=== PATIENT | female | born 1975 | race Caucasian/White ===

== ENCOUNTER 2020-04-06 08:54 | Emergency (ER) | payer MEDICAID, OTHER ==
[~2020-04-06] VITALS: Ht 157.4 cm; Wt 95.2 kg
[2020-04-06 09:00] VITALS: BP 125/82
[2020-04-06] MEDS ORDERED: Armour Thyroid (09:17)
[2020-04-06] MEDS ORDERED: Lasix (09:17)
[2020-04-06] MEDS ORDERED: Alprazolam (09:17)
[2020-04-06] MEDS ORDERED: Effexor (09:17)
[2020-04-06] MEDS ORDERED: IBUP-1780 PO (09:24)
[2020-04-06] MEDS ORDERED: CYCL10TA9 PO (09:24)
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
== END 2020-04-06 09:31 | disposition home or self-care (01) ==
LOC: EDUNIT# 08:54 → ER FS 08:55
DX: S29.012A Strain of muscle and tendon of back wall of thorax, initial encounter (principal); Z88.2 Allergy status to sulfonamides; V49.40XA Driver injured in collision with unspecified motor vehicles in traffic accident, initial encounter
CPT/HCPCS: 99282

== ENCOUNTER 2022-12-26 05:43 | Outpatient (CLI) | payer BC ==
[~2022-12-26] VITALS: Ht 157.5 cm; Wt 94.0 kg
[~2022-12-26 05:43] MED LIST: Alprazolam; Armour Thyroid; CYCL10TA25 PO; Effexor; IBUP-1780 PO; Lasix
[2022-12-28] MEDS ORDERED: LEVO88TA2 PO (09:50)
[2022-12-28] MEDS ORDERED: ONDA4TAB11 SL (09:50)
[2022-12-28] MEDS ORDERED: PANT40TA52 PO (09:50)
[2022-12-28] MEDS ORDERED: LINA145C PO (09:50)
[2022-12-28] MEDS ORDERED: TRAZ150T72 PO (09:50)
== END 2022-12-28 09:54 | disposition home or self-care (01) ==
LOC: PREOP 05:43
PROVIDERS: ATTEND Surgery
DX: Z01.818 Encounter for other preprocedural examination (principal)

== ENCOUNTER 2023-01-07 07:34 | Day surgery (SDC) | payer BC ==
[~2023-01-07] VITALS: Ht 157.5 cm; Wt 94.0 kg
[~2023-01-07 07:34] MED LIST changes: +LEVO88TA2 PO; +LINA145C PO; +ONDA4TAB11 SL; +PANT40TA52 PO; +TRAZ150T72 PO
[2023-01-07] MEDS ORDERED: LACTATED RINGERS 1,000 ML IV STA (07:54)
[2023-01-07 08:00] VITALS: BP 112/82
[2023-01-07] MEDS ORDERED: HURRICAINE EXT TUBE (BENZOCAINE) XX PRN (08:00)
--- NOTE | 2023-01-07 08:11 | Progress Note-Pre Operative ---
Pre-Operative Progress Note Date of Available H&P: Dec 20, 2022 Date H&P Reviewed: Jan 07, 2023 Time H&P Reviewed: 08:06 History & Physical: H&P Reviewed, Patient Examed, No changes noted Pre-Operative Diagnosis: GERD, Screening DWAYNE RODRÍGUEZ DO Jan 07, 2023 08:11
[2023-01-07] MEDS ORDERED: PROPOFOL INJECTION 50 ML IV ONE ×2 (08:17→08:49)
[2023-01-07] MEDS ORDERED: MIDAZOLAM 2 MG/2 ML (VERSED) VIAL ONE (08:17)
--- NOTE | 2023-01-07 09:08 | Progress Note-Post Operative ---
Post-Operative Progess Note Surgeon (s)/Production Engineer (s) Surgeon DWAYNE RODRÍGUEZ DO Production Engineer: none Pre-Operative Diagnosis GERD, Screening Post-Operative Diagnosis Gastritis Hiatal Hernia Esophagitis Colon polyp int hemorrhoids Procedure & Operative Findings Date of Procedure 01/07/23 Procedure Performed/Findings EGD with biopsy Colonoscopy with snare polypectomy PROCEDURE NOTE: After informed consent was obtained, the patient was brought to the endoscopy suite, placed in bed in left lateral decubitus position. She was administered IV sedation by the STRIP MACHINE TENDER who then monitored vitals the entire time, heart rate, blood pressure and pulse ox and the scope was inserted down the mouth through the esophagus into the stomach. On the way down, noted some mild esophagitis, took a picture, pushed into the stomach, pushed past the antrum into the duodenum. Duodenum looked good. Pulled back and did a biopsy of the antrum, then retroflexed the scope, saw small grade I AFS hiatal hernia, took a picture of this and then pulled the scope into the GE junction and then did a biopsy of the GE junction. Pushed the scope back into the stomach, suctioned all the air out of the stomach. At this point pulled the scope up the esophagus and out the mouth. Switched camera, switched gloves, went down below and started the colonoscopy. Pushed all the way to about 140 cm and pushed into the cecum, took a picture of appendiceal orifice and noted the ileocecal valve. Then slowly withdrew the scope insufflating to look circumferentially at the fofana starting in the cecum and up the ascending colon. Found a polyp here and elected to remove it with hot snare. Continued up to the hepatic flexure, then down the transverse colon, splenic flexure, into the descending colon down in the sigmoid and then into the rectal vault and retroflexed the scope. Took a picture of the internal hemorrhoids. The patient tolerated the procedure and she recovered in the endoscopy suite. Recommended for repeat colonoscopy in 5 years Anesthesia Type IV sedation by STRIP MACHINE TENDER Estimated Blood Loss Estimated blood loss (mL): scant Specimens/Packing Specimens Removed antral bx body of stomach bx GE jxn Asc colon polyp DWAYNE RODRÍGUEZ DO Jan 07, 2023 09:08
--- NOTE | 2023-01-07 09:09 | Endoscopy Discharge Instruct ---
Endo Procedure/Findings Findings 1.: Gastritis 2.: Hiatal Hernia 3.: Polyp 4.: Internal Hemorrhoids Discharge Instructions - Activity: You might feel a little sleepy until tomorrow. This is due to the medicine you received to relax you. Until tomorrow, you should: NOT drive a car, operate machinery or power tools. NOT drink any alcoholic beverages. NOT make any important decisions or sign importortant papers. Do not return to work until tomorrow, unless otherwise instructed. Resume previous activities tomorrow. Diet: Start by taking liquids. If you tolerate liquids, advance to solid food. 1.: EGD in 3 years 2.: Colonscopy in 5 years Notify Physician - If you experience excessive bleeding, unusual abdominal pain, fever, or chest pain, contact your doctor immediately. Follow-Up: Other Follow up in my office in one week DWAYNE RODRÍGUEZ DO Jan 07, 2023 09:09
[2023-01-07 09:10] VITALS: BP 116/75
[2023-01-07 09:12] VITALS: BP 119/80
--- NOTE | 2023-01-07 09:25 | Anesthesia-General Post-Op ---
MAC Patient Condition Mental Status/LOC: Same as Preop Cardiovascular: Satisfactory Nausea/Vomiting: Absent Respiratory: Satisfactory Pain: Controlled Complications: Absent Post Op Complications Complications None Follow Up Care/Instructions Patient Instructions None needed. Anesthesiology Discharge Order Discharge Order Patient is doing well, no complaints, stable vital signs, no apparent adverse anesthesia problems. No complications reported per nursing. DHEERAJ CERDA CRNA Jan 07, 2023 09:25
[2023-01-07 09:40] VITALS: BP 119/80
== END 2023-01-07 09:49 | disposition home or self-care (01) ==
LOC: ENDO 07:34
PROVIDERS: ATTEND Surgery
DX: K63.5 Polyp of colon (principal); K21.00 Gastro-esophageal reflux disease with esophagitis, without bleeding; K44.9 Diaphragmatic hernia without obstruction or gangrene; K64.8 Other hemorrhoids; K29.50 Unspecified chronic gastritis without bleeding